=== PATIENT | male | born 1970 | race Caucasian/White ===

== ENCOUNTER 2018-09-19 10:27 | Emergency (ER) | payer OTHER ==
[~2018-09-19] VITALS: Ht 165.1 cm; Wt 81.3 kg
[~2018-09-19 10:27] MED LIST: MICARDIS HCT 121 TA1 PO
[2018-09-19 10:29] VITALS: BP 139/97
[2018-09-19] MEDS ORDERED: TENORMIN 5050 MG/TAB PO (10:47)
[2018-09-19] MEDS ORDERED: ZESTORETIC 12.51 TA1 PO (10:48)
[2018-09-19] MEDS ORDERED: NORCO 325 MG-51 TAB PO (13:25)
[2018-09-19 14:13] VITALS: PULSE 57; TEMP 97.8
== END 2018-09-19 14:13 | disposition home or self-care (01) ==
LOC: COL.ER 10:27
DX: M75.52 Bursitis of left shoulder (principal); Y93.H3 Activity, building and construction
CPT/HCPCS: J1885